=== PATIENT | male | born 1955 | race Caucasian/White ===

== ENCOUNTER → 2019-06-13 | Outpatient (CLI) | payer OTHER | END | disposition home or self-care (01) | LOC: LAB SRC 16:00 → LAB SHORT 16:00 | DX: L02.414 Cutaneous abscess of left upper limb (principal) | CPT/HCPCS: 87070; 87075; 87077; 87186; 87205 ==

== ENCOUNTER 2022-12-05 06:07 | Day surgery (SDC) | payer MEDICARE, OTHER ==
[2022-12-05] VITALS (13 sets, daily range): BP systolic 106–143; BP diastolic 73–98
[~2022-12-05] VITALS: Ht 170.2 cm; Wt 78.6 kg
[~2022-12-05 06:07] MED LIST: LISINOPRIL PO; NAPR500 PO; TRAM50 PO
--- NOTE | 2022-12-05 11:08 | NUR ---
ARRIVAL TO FLOOR PODO LTHA PT A&O X4, INCISION ON LEFT HIP. PRINEO DRESSING C/D/I. PT HAD SPINAL, ABLE TO MOVE TOES AND FEET. HAS SENSTION IN FEET. PT HAS NO COMPLAINTS OF PAIN AT TIME. POLAR CUBE ON SURGICAL SITE. NO QUESTIONS AT THIS TIME. CALL LIGHT WITHIN REACH.
--- NOTE | 2022-12-05 15:39 | NUR ---
UPDATE PT BLADDER SCANNED. 476 IN BLADDER, PT EDUCATED ABOUT AHVING TO URINATE. WAS TOLD HE FELT LIKE HE HAD TO GO, GOT PT UP TO THE BATHROOM. NO SUCCESS, PT ASKED FOR 15 MORE MINUTES. WILL WAIT FOR THAT AMOUNT OF TIME. WILL NEED TO STRAIGHT CATH OF NO VOIDING HAPPENS.
--- NOTE | 2022-12-05 17:53 | NUR ---
SHIFT SUMMARY POD 0 L EMIR PT A&O X4, RESPONDS APPROPRIATELY. PT HAD A SPINAL, ABLE TO FEEL ALL LOWER EXTREMITIES. NO NUMBNESS OR TINGLING. PT ABLE TO AMBULATE WITH WALKER AND NURSE ASSIST. PRINEO DRESSING TO L HIP, C/D/I. PT WAS NOT ABLE TO VOID, BLADDER SCANNED HAD 476ML. STRAIGHT CATHED HAD 600ML OUTPUT OF YELLOW URINE. NO COMPLAINTS OF PAIN.
[2022-12-06 00:01] VITALS: BP 130/74
[2022-12-06 04:17] VITALS: BP 121/83
--- NOTE | 2022-12-06 04:45 | NUR ---
SUMMARY: PT A/OX4, IS PLEASANT AND COOPERATIVE W/CARE AND SPECIFIES NEEDS. HE'S POD 1 S/P LTHA W/PRINEO DX REMAINING C/D/I. VERY SLIGHT BRUISING AND SWELLING NOTED TO L.HIP SITE BUT PT REPORTS PAIN MANAGED W/SCHEDULED MEDS AND POLAR PACK, NO PRN'S REQUIRED THIS SHIFT. SENSATION IS INTACT TO THE TOP OF THE INCISION LINE W/MILD NUMBNESS NOTED TOWARD THE CENTER/BASE, LLE MOVEMENT AND SENSATION WNL OTHERWISE. HE USED URINAL AD MEMO AND WAS UP W/1PA, FWW AND GB. IV ABX RECIEVED PER EMAR. NO ACUTE CHANGES, VSS/AFEBRILE. WCTM AND REPORT TO DAY RN.
[2022-12-06 06:01] LABS: Bun/Creatinine Ratio 26.6 (12.0-20.0); Calcium, Blood 8.5 mg/dL (8.5-10.1); Creatinine, Blood 0.94 mg/dL (0.60-1.20); Magnesium, Blood 1.6 mg/dL (1.6-2.4); Potassium, Blood 4.5 mmol/L (3.5-5.5)
[2022-12-06 06:57] LABS: BASOPHILS ABSOLUTE AUTO 0.04 K/mm3 (0.00-0.23); BASOPHILS PERCENT AUTO 0 % (0-2); EOSINOPHILS ABSOLUTE AUTO 0.03 K/mm3 (0.00-0.68); EOSINOPHILS PERCENT AUTO 0 % (0-6); Hematocrit 37.2 % (37.0-53.0); Hemoglobin 13.1 g/dL (13.5-17.5); IMMATURE GRAN ABSOLUTE AUTO 0.08 K/mm3 (0.00-0.10); IMMATURE GRAN PERCENT AUTO 0 % (0-1); LYMPHOCYTES ABSOLUTE AUTO 1.41 K/mm3 (0.84-5.20); LYMPHOCYTES PERCENT AUTO 7 % (21-46); MONOCYTES ABSOLUTE AUTO 1.25 K/mm3 (0.16-1.47); MONOCYTES PERCENT AUTO 7 % (4-13); Mean Corpuscular HGB 33.8 pg (26.0-34.0); Mean Corpuscular HGB Conc 35.2 g/dL (31.5-36.5); Mean Corpuscular Volume 96 fL (80-100); Mean Platelet Volume 9.7 fL (9.1-12.4); NEUTROPHILS ABSOLUTE AUTO 16.35 K/mm3 (1.96-9.15); NEUTROPHILS PERCENT AUTO 85 % (41-73); Platelet Count 273 K/mm3 (150-400); RDW Coefficient Variation 11.9 % (11.7-14.2); RDW Standard Deviation 41.9 fL (35.1-46.3); Red Blood Cell Count 3.88 M/mm3 (4.30-5.90); White Blood Cell Count 19.16 K/mm3 (4.00-11.30)
[2022-12-06 07:20] VITALS: BP 121/72
[2022-12-06] MEDS ORDERED: ACET500 PO (09:13)
[2022-12-06] MEDS ORDERED: ASPI81CH PO (09:14)
[2022-12-06] MEDS ORDERED: OXAYDO5 M1 PO (09:16)
--- NOTE | 2022-12-06 10:20 | NUR ---
DISCHARGE SUMMARY POD1 LTHA PT A&O X4, PT UP IN CHAIR. ABLE TO AMBULATE WITH WALKER AND NURSE ASST. PT HAS NO URGE TO VOID, DID VOID BEFORE COMING ON TO SHIFT. PT HAS FULL SENSATION. AQUACEL DRESSING PLACED OVER PRINEO, DRESSING C/D/I. DISHCHARGE INSTRUSTIONS GIVEN. NO QUESTION AT THSI TIME. IV TAKEN OUT. PT WAITNG FOR RIDE.
--- NOTE | 2022-12-06 12:25 | NUR ---
UPDATE PT TAKEN OUT VIA WHEELCHAIR. ALL BELONGINGS WITH PT
--- NOTE | 2022-12-07 07:37 | NUR ---
12/07/22 0737 Luisana Parsons VERIFICATIONS: EDIT CHART.
== END 2022-12-06 12:25 | disposition home or self-care (01) ==
LOC: ORSCMMR 06:07 → ORD 07:30 → SURS 09:55 → ORSCMMR 12-06 12:25 → SURS 12-06 12:25
PROVIDERS: Orthopaedic Surgery
PROC: 0SRB0JA Replacement of Left Hip Joint with Synthetic Substitute, Uncemented, Open Approach (ICD-10-PCS; principal; 2022-12-05 07:30)
DX: M16.0 Bilateral primary osteoarthritis of hip (principal); Z87.891 Personal history of nicotine dependence
CPT/HCPCS: 36415; 72170; 80048; 83735; 85025; 97110; 97116; 97162; A9270; C1776; J0171; J0690; J0735; J1100; J1885; J2370; J2405; J2704; J2795; J3010; J7120